=== PATIENT | male | born 1965 | race Caucasian/White ===

== ENCOUNTER 2019-09-26 11:27 | Inpatient (IN) ==
[2019-09-26] MEDS ORDERED: SODIUM CHLORIDE 0.9% 500 ML IV STA (11:46)
[2019-09-26] MEDS ORDERED: MoRPHine SULFATE 10 MG/ML CARP/VIAL IV PRN (11:46)
[2019-09-26] MEDS ORDERED: KETOROLAC TROMETHAMINE 15 MG/ML VIAL IV STA (11:46)
[2019-09-26] MEDS ORDERED: ONDANSETRON INJ 2 MG/ML 2 ML VIAL IV STA ×2 (11:46→16:49)
[2019-09-26] MEDS ORDERED: ONDANSETRON INJ 2 MG/ML 2 ML VIAL ONE (11:49)
[2019-09-26] MEDS ORDERED: MoRPHine SULFATE 4 MG/ML 1 ML CARP\\VIAL ONE (11:50)
[2019-09-26] MEDS ORDERED: KETOROLAC TROMETHAMINE 15 MG/ML VIAL ONE (11:50)
[2019-09-26] MEDS: MoRPHine SULFATE 2 MG/ML CARP ONE (11:53)
[2019-09-26 12:00] LABS: POC Urine Bilirubin Negative (Negative); POC Urine Blood 50 (Negative); POC Urine Glucose Normal (Normal); POC Urine Ketones Negative (Negative); POC Urine Leukocytes Negative (Negative); POC Urine Nitrite Negative (Negative); POC Urine Protein Negative (Negative); POC Urine Urobilinogen Normal (Normal); POC Urine pH 7 (4.5-7.5)
[2019-09-26 12:02] LABS: Hematocrit (blood only) 47.7 % (42-52); Hemoglobin 16.9 g/dL (14.0-18.0); Mean Corpuscular Hemoglobin 32.3 pg (25-34); Mean Corpuscular Hgb Conc 35.4 g/dL (32-36); Mean Platelet Volume 10.7 fL (7.4-10.4); Platelet Count 199 K/uL (130-400); RDW Coefficient of Variation 12.4 % (11.5-14.5); RDW Standard Deviation 41.5 fL (36.4-46.3); Red Blood Count 5.24 M/uL (4.7-6.1); White Blood Count 7.64 K/uL (4.8-10.8)
[2019-09-26 12:07] LABS: Appearance Urine Clear (Clear); Bacteria Urine Automated Negative (Negative); Bilirubin Urine Negative (Negative); Blood Urine 1+ (Negative); Color Urine Dark Yellow; Epithelial Cell Urine Auto 0-5 /lpf (0-5); Glucose Urine UA Negative (Negative); Ketones Urine Negative (Negative); Leukocyte Esterase Urine Negative (Negative); Nitrite Urine Negative (Negative); Protein Urine Trace (Negative); RBC Urine Automated 0-4 /hpf (0-4); Specific Gravity Urine 1.026 (1.000-1.030); Urobilinogen Urine Negative (Negative)
[2019-09-26 12:12] LABS: Calcium 9.2 mg/dl (8.5-10.1); Potassium 3.7 mmol/L (3.5-5.1)
[2019-09-26 12:14] LABS: BUN Creatinine Ratio 16.4 (10-20); Creatinine Clr Calc Pharmacy 76.9 ml/min; Est GFR (African American) 70.7
[2019-09-26 12:21] LABS: Albumin Level 4.1 gm/dl (3.4-5.0); Bilirubin Direct 0.2 mg/dl (0-0.2); Bilirubin,Total 0.8 mg/dl (0.2-1); Total Protein 7.8 gm/dl (6.4-8.2)
[2019-09-26] MEDS ORDERED: MoRPHine SULFATE 10 MG/ML CARP/VIAL IV STA (12:45)
--- NOTE | 2019-09-26 12:49 | CT Scan Report ---
CT SCAN OF THE ABDOMEN AND PELVIS WITHOUT IV CONTRAST CLINICAL HISTORY: Left flank pain. Hematuria. COMPARISON STUDY: No priors. TECHNIQUE: CT scan of the abdomen and pelvis is performed from the lung bases to the proximal femora. Images are reviewed in the axial, sagittal, and coronal planes. IV contrast was not administered for this examination as per the referring clinician. A dose lowering technique was utilized adhering to the principles of ALARA. CT DOSE: 987.11 mGy.cm FINDINGS: Lung bases: The heart is normal in size and without pericardial effusion. There are coronary artery c alcifications. Emphysematous change is suspected. No airspace consolidation or pleural effusion is id entified. There is a small hiatal hernia. Liver: The unenhanced liver is normal in size, contour, and attenuation. There is no intrahepatic caitlyn iary ductal dilatation. Gallbladder: Unremarkable. Spleen: Normal in size and attenuation. Pancreas: Unremarkable. Adrenal glands: Unremarkable. Kidneys: The unenhanced kidneys are normal in size. There is a 4 mm obstructing calculus at the left vesicoureteral junction seen on image #397. This causes mild to moderate left hydroureteronephrosis. No additional calculi are identified in the left kidney. No right renal calculi are seen and there is no right-sided hydronephrosis. There is no evidence of contour deforming renal mass lesion. Abdominal vasculature: The abdominal aorta is normal in course and caliber noting mild atheroscleroti c calcification. Bowel: There is mild colonic diverticulosis without CT evidence of acute diverticulitis. No bowel obs truction is seen. The appendix is not identified and reported surgically absent. Peritoneum: There is no intraperitoneal free air or abdominal ascites. Lymphadenopathy: None. Pelvic viscera: The bladder is decompressed and not well evaluated. The prostate gland is mildly enla rged and heterogeneous. The seminal vesicles are normal as imaged. Skeletal structures: There is mild lumbosacral spondylosis. Postoperative change is noted at L5-S1. A bone graft donor site is seen in the medial left ilium. No lytic or blastic lesions are seen. IMPRESSION: 1. There is a 4 mm obstructing calculus at the left vesicoureteral junction. This causes mild to mode rate left hydroureteronephrosis. 2. No additional calculi are identified in either kidney. 3. Mild colonic diverticulosis without CT evidence of acute diverticulitis. 4. Additional findings as above. Electronically signed by: Raman Baxter M.D. 09/26/2019 12:48 PM
[2019-09-26] MEDS ORDERED: ONDANSETRON 4 MG OD TAB PO STA (13:58)
[2019-09-26] MEDS ORDERED: SODIUM CHLORIDE 0.9% 1000ML 1,000 ML IV ONE (16:49)
--- NOTE | 2019-09-26 17:10 | Emergency Department Note ---
Entered by Humaira Willams acting as a scribe for Terrence Agustin DO History of Present Illness General Chief complaint: Kidney Stone Stated complaint: KIDNEY STONE Source: patient History of Present Illness Onset (ago): hour(s) 3 Location: left (flank) Radiation: abdomen Severity: severe and similar to prior episodes Pain Consistency: + other (Sudden) Maximum Pain Intensity: 9 Quality: + other (flank pain) Associated symptoms: no chest pain and no other (dysuria) Treatments prior to arrival: none The patient is a 53 year old male presenting to the Emergency Department complaining of sudden flank pain stating 3 hours ago. The patient reports that he has severe left sided flank pain. He states that this pain radiates to his abdomen and bladder. He notes that he experienced these symptoms year ago when he had a kidney stone. He adds that he took no medications [employer] for his symptoms. The patient denies chest pain and dysuria. No other exacerbating or remitting factors. Home Medications Home Medications Medication Instructions Recorded Confirmed Type atorvastatin 10 mg PO DAILY 09/26/19 09/26/19 History tramadol 50 mg PO TID PRN #14 tab 09/26/19 Rx Allergies Allergy/AdvReac Type Severity Reaction Status Date / Time oxycodone [From OxyContin] Allergy Anaphylaxis Unverified 09/26/19 12:38 Past Med/Surg History Medical History History of kidney stones Surgical History History of appendectomy History of hernia repair Social History Preferred Language: Greenlandic Feels Safe at Home: Yes Smoking Status: Never smoker Review of Systems See HPI for pertinent positives & negatives. and A total of 10 systems reviewed and were otherwise negative Physical Exam Vital Signs Vital Signs - 24 hr 09/26/19 11:31 09/26/19 14:06 09/26/19 17:00 Temperature 36.4 C L Temperature Source Oral Sepsis Recent Fever Within 48 Hours No Sepsis New/Unexplained Change in Mental Status No Sepsis Action Taken by Nursing No Action Required Pulse Rate 77 77 Pulse Rate [Right Finger] 83 Pulse Rhythm [Right Finger] Regular Respiratory Rate 24 18 18 Respiratory Effort / Characteristics Non-Labored Non-Labored Spontaneous Respiratory Depth Normal Normal Blood Pressure 143/96 H 143/96 H Blood Pressure [Right Arm] 138/87 Blood Pressure Mean 111 Blood Pressure Mean [Right Arm] 104 Blood Pressure Position Sitting Blood Pressure Position [Right Arm] Lying Pulse Oximetry 99 99 97 Oxygen Delivery Method Room Air Room Air Room Air GENERAL: Patient is walking around room, holding left flank. Moderate distress EYE EXAM: normal conjunctiva. OROPHARYNX: no exudate, no erythema, lips, buccal mucosa, and tongue normal and mucous membranes are moist NECK: supple, no nuchal rigidity, no adenopathy, non-tender LUNGS: Clear to auscultation. Normal chest wall mechanics HEART: no murmurs, S1 normal and S2 normal ABDOMEN: abdomen soft, non-tender, normo-active bowel sounds, no masses, no rebound or guarding. BACK: Back is symmetrical on inspection and there is no deformity, no midline tenderness, no CVA tenderness. SKIN: no rashes and no bruising UPPER EXTREMITIES: upper extremities are grossly normal. LOWER EXTREMITIES: No pitting edema. NEURO EXAM: Normal sensorium, cranial nerves II-XII grossly intact, normal speech, no gross weakness of arms, no gross weakness of legs. Course ED COURSE: Vital signs were reviewed and showed hypertension. The patients medical record was reviewed The above diagnostic studies were performed and reviewed. ED treatments and interventions as stated above. 1150: The patient was evaluated in room B2. A complete history and physical ex amination was performed. 1247: I reevaluated the patient at this time reports that he is in pain. I will order more pain medication. 1303: I updated the patient at this time. 1308: I spoke to the patient at this time who reports that he can take Tramadol. 1815: The patient's nurse reports that the patient vomited in the waiting room at this time. 1624: I reevaluated the patient at this time who continues to vomit. I will call the hospitalist service. 1702: I discussed the patient's case with Dr. Ismael Batista hospitalist. He will evaluate the patient for further management. 1710: Upon reevaluation, I discussed my findings with the patient and he understands and agrees with the treatment plan. Based on the patients age, coexisting illnesses, exam and lab findings the decision to treat as an intpatient was made. The patient remained stable while under my care. The patient will be evaluated for further management. Administered Medications Sodium Chloride (Nss 1000ml) 1,000 mls @ 999 mls/hr IV .Q1H1M ONE Stop: 09/26/19 17:49 Last Admin: 09/26/19 17:05 Dose: 999 mls/hr Documented by: [id number] Morphine Sulfate (Morphine Sulfate) 6 mg IV Q10M PRN PRN Reason: Pain Last Admin: 09/26/19 12:46 Dose: 6 mg Documented by: [id number] Discontinued Medications Sodium Chloride (Nss) 500 mls @ 999 mls/hr IV .Q31M STA Stop: 09/26/19 12:16 Last Infusion: 09/26/19 12:52 Dose: 0 mls/hr Documented by: [id number] Admin: 09/26/19 11:55 Dose: 999 mls/hr Documented by: [id number] Ketorolac Tromethamine (Toradol) 15 mg IV ONE STA Stop: 09/26/19 11:47 Last Admin: 09/26/19 11:55 Dose: Not Given Documented by: [id number] Ketorolac Tromethamine (Toradol) Confirm Administered Dose 15 mg .ROUTE .STK-MED ONE Stop: 09/26/19 11:51 Last Admin: 09/26/19 11:54 Dose: 15 mg Documented by: [id number] Morphine Sulfate (Morphine Sulfate) Confirm Administered Dose 2 mg .ROUTE .STK- MED ONE Stop: 09/26/19 11:50 Last Admin: 09/26/19 11:53 Dose: 2 mg Documented by: [id number] Admin: 09/26/19 11:53 Dose: 2 mg Documented by: [id number] Morphine Sulfate (Morphine Sulfate) Confirm Administered Dose 4 mg .ROUTE .STK- MED ONE Stop: 09/26/19 11:51 Last Admin: 09/26/19 11:53 Dose: 4 mg Documented by: [id number] Morphine Sulfate (Morphine Sulfate) 6 mg IV NOW STA Stop: 09/26/19 12:46 Last Admin: 09/26/19 12:54 Dose: Not Given Documented by: [id number] Ondansetron HCl (Zofran) 4 mg IV NOW STA Stop: 09/26/19 11:47 Last Admin: 09/26/19 11:55 Dose: Not Given Documented by: [id number] Ondansetron HCl (Zofran) Confirm Administered Dose 4 mg .ROUTE .STK-MED ONE Stop: 09/26/19 11:50 Last Admin: 09/26/19 11:54 Dose: 4 mg Documented by: [id number] Ondansetron HCl (Zofran Odt) 8 mg PO NOW STA Stop: 09/26/19 13:59 Last Admin: 09/26/19 14:03 Dose: 8 mg Documented by: [id number] Medical Decision Making Differential Diagnosis Differential diagnoses includes but is not limited to gastritis, peptic ulcer disease, GERD, gallbladder disease, pancreatitis, small bowel obstruction, acute coronary syndrome, pericarditis, ischemic bowel, irritable bowel disease, irritable bowel syndrome, appendicitis, diverticulitis, malignancy, hernia, urinary tract infection, torsion, perforation, trauma, infectious. Medical Records Attestation: I reviewed the patient's medical records. Home Medications Current Medication List: was personally reviewed by me Laboratory Data Attestation: I reviewed the patient's lab results. Result diagrams: 09/26/19 11:45 09/26/19 11:45 Lab Results 09/26/19 09/26/19 09/26/19 Range/Units 11:45 11:45 11:45 WBC 7.64 (4.8-10.8) K/uL RBC 5.24 (4.7-6.1) M/uL Hgb 16.9 (14.0-18.0) g/dL Hct 47.7 (42-52) % MCV 91.0 (80-100) fL MCH 32.3 (25-34) pg MCHC 35.4 (32-36) g/dL RDW Std Deviation 41.5 (36.4-46.3) fL RDW Coeff of Dina 12.4 (11.5-14.5) % Plt Count 199 (130-400) K/uL MPV 10.7 H (7.4-10.4) fL Sodium 140 (136-145) mmol/L Potassium 3.7 (3.5-5.1) mmol/L Chloride 105 (98-107) mmol/L Carbon Dioxide 27 (21-32) mmol/L Anion Gap 8.0 (3-11) BUN 22 H (7-18) mg/dl Creatinine 1.33 (0.6-1.4) mg/dl Est Cr Clr Drug Dosing 76.9 ml/min Est GFR ( Amer) 70.7 Est GFR (Non-Af Amer) 61.0 BUN/Creatinine Ratio 16.4 (10-20) Glucose 117 H (70-99) mg/dl Calcium 9.2 (8.5-10.1) mg/dl Total Bilirubin 0.8 (0.2-1) mg/dl Direct Bilirubin 0.2 (0-0.2) mg/dl AST 39 H (15-37) U/L ALT 99 H (12-78) U/L Alkaline Phosphatase 108 (45-117) U/L Total Protein 7.8 (6.4-8.2) gm/dl Albumin 4.1 (3.4-5.0) gm/dl Urine Color Urine Appearance (Clear) Urine pH (4.5-7.5) POC Urine pH 7 (4.5-7.5) Ur Specific Disputanta (1.000-1.030) Urine Protein (Negative) POC Urine Protein Negative (Negative) Urine Glucose (UA) (Negative) POC Ur Glucose (UA) Normal (Normal) Urine Ketones (Negative) POC Urine Ketones Negative (Negative) Urine Blood (Negative) POC Urine Blood 50 H (Negative) Urine Nitrite (Negative) POC Urine Nitrite Negative (Negative) Urine Bilirubin (Negative) POC Urine Bilirubin Negative (Negative) Urine Urobilinogen (Negative) POC Urine Urobilinogen Normal (Normal) Ur Leukocyte Esterase (Negative) POC U Leukocyte Esteras Negative (Negative) Urine WBC (Auto) (0-5) /hpf Urine RBC (Auto) (0-4) /hpf U Hyaline Cast (Auto) (0-5) /lpf U Epithel Cells (Auto) (0-5) /lpf Urine Bacteria (Auto) (Negative) 09/26/19 Range/Units 11:45 WBC (4.8-10.8) K/uL RBC (4.7-6.1) M/uL Hgb (14.0-18.0) g/dL Hct (42-52) % MCV (80-100) fL MCH (25-34) pg MCHC (32-36) g/dL RDW Std Deviation (36.4-46.3) fL RDW Coeff of Dina (11.5-14.5) % Plt Count (130-400) K/uL MPV (7.4-10.4) fL Sodium (136-145) mmol/L Potassium (3.5-5.1) mmol/L Chloride (98-107) mmol/L Carbon Dioxide (21-32) mmol/L Anion Gap (3-11) BUN (7-18) mg/dl Creatinine (0.6-1.4) mg/dl Est Cr Clr Drug Dosing ml/min Est GFR ( Amer) Est GFR (Non-Af Amer) BUN/Creatinine Ratio (10-20) Glucose (70-99) mg/dl Calcium (8.5-10.1) mg/dl Total Bilirubin (0.2-1) mg/dl Direct Bilirubin (0-0.2) mg/dl AST (15-37) U/L ALT (12-78) U/L Alkaline Phosphatase (45-117) U/L Total Protein (6.4-8.2) gm/dl Albumin (3.4-5.0) gm/dl Urine Color Dark Yellow Urine Appearance Clear (Clear) Urine pH 5.0 (4.5-7.5) POC Urine pH (4.5-7.5) Ur Specific Disputanta 1.026 (1.000-1.030) Urine Protein Trace H (Negative) POC Urine Protein (Negative) Urine Glucose (UA) Negative (Negative) POC Ur Glucose (UA) (Normal) Urine Ketones Negative (Negative) POC Urine Ketones (Negative) Urine Blood 1+ H (Negative) POC Urine Blood (Negative) Urine Nitrite Negative (Negative) POC Urine Nitrite (Negative) Urine Bilirubin Negative (Negative) POC Urine Bilirubin (Negative) Urine Urobilinogen Negative (Negative) POC Urine Urobilinogen (Normal) Ur Leukocyte Esterase Negative (Negative) POC U Leukocyte Esteras (Negative) Urine WBC (Auto) 1-5 (0-5) /hpf Urine RBC (Auto) 0-4 (0-4) /hpf U Hyaline Cast (Auto) 1-5 (0-5) /lpf U Epithel Cells (Auto) 0-5 (0-5) /lpf Urine Bacteria (Auto) Negative (Negative) Imaging Data Radiologist's Impression: Radiology results as stated below per my review and the radiologist's interpretation: CT SCAN OF THE ABDOMEN AND PELVIS WITHOUT IV CONTRAST CLINICAL HISTORY: Left flank pain. Hematuria. COMPARISON STUDY: No priors. TECHNIQUE: CT scan of the abdomen and pelvis is performed from the lung bases to the proximal femora. Images are reviewed in the axial, sagittal, and coronal planes. IV contrast was not administered for this examination as per the referring clinician. A dose lowering technique was utilized adhering to the principles of ALARA. CT DOSE: 987.11 mGy.cm FINDINGS: Lung bases: The heart is normal in size and without pericardial effusion. There are coronary artery calcifications. Emphysematous change is suspected. No airspace consolidation or pleural effusion is identified. There is a small hiatal hernia. Liver: The unenhanced liver is normal in size, contour, and attenuation. There is no intrahepatic biliary ductal dilatation. Gallbladder: Unremarkable. Spleen: Normal in size and attenuation. Pancreas: Unremarkable. Adrenal glands: Unremarkable. Kidneys: The unenhanced kidneys are normal in size. There is a 4 mm obstructing calculus at the left vesicoureteral junction seen on image #397. This causes mild to moderate left hydroureteronephrosis. No additional calculi are identified in the left kidney. No right renal calculi are seen and there is no right-sided hydronephrosis. There is no evidence of contour deforming renal mass lesion. Abdominal vasculature: The abdominal aorta is normal in course and caliber noting mild atherosclerotic calcification. Bowel: There is mild colonic diverticulosis without CT evidence of acute diverticulitis. No bowel obstruction is seen. The appendix is not identified and reported surgically absent. Peritoneum: There is no intraperitoneal free air or abdominal ascites. Lymphadenopathy: None. Pelvic viscera: The bladder is decompressed and not well evaluated. The prostate gland is mildly enlarged and heterogeneous. The seminal vesicles are normal as imaged. Skeletal structures: There is mild lumbosacral spondylosis. Postoperative change is noted at L5-S1. A bone graft donor site is seen in the medial left ilium. No lytic or blastic lesions are seen. IMPRESSION: 1. There is a 4 mm obstructing calculus at the left vesicoureteral junction. This causes mild to moderate left hydroureteronephrosis. 2. No additional calculi are identified in either kidney. 3. Mild colonic diverticulosis without CT evidence of acute diverticulitis. 4. Additional findings as above. Electronically signed by: Raman Baxter M.D. 09/26/2019 12:48 PM Blood Pressure Blood Pressure Findings: Elevated blood pressure Blood Pressure Disposition: further management by hospitalist MARY Narrative Patient is a 53-year-old male who presents the ER for left-sided flank pain that started this morning. Patient describes it is severe and sharp stabbing in jun ure. He was in moderate distress on exam. IV was established blood work was obtained and showed no significant leukocytosis or anemia. BMP along with LFTs shows a mild transaminitis. UA without signs of infection but did have hematuria likely secondary to stone. CT abdomen pelvis shows a 4 mm distal left ureteral stone. Patient was given multiple dose of IV narcotics and IV Zofran. He was given IV fluids. He was initially discharged. He continued to get intermittently sick and consequently I recommend that he stay. IV was replaced he was given IV fluids Zofran and more pain medications. He was discussed with the hospitalist and will be observed overnight. Impression & Plan Renal colic, Hydronephrosis, Vomiting Discharge Plan Visit Data Chief Complaint: Kidney Stone Stated Complaint: KIDNEY STONE ED Provider: Terrence Agustin Discharge Problem: Renal colic, Hydronephrosis, Vomiting Patient Disposition: Being Evaluated by Hospitalist Discharge Instructions Krames/Other Patient Handouts: ED Stone Renal W Colic Activity Restrictions/Additional Instructions: Please follow up with your primary care doctor with in the next 24 hours. Any worsening of your symptoms, please return to the ED immediately. This includes any fevers greater than 100.4, worsening pain, chest pain, shortness breath, p ersistent nausea, vomiting, unable to eat or drink, or any other concerning signs or symptoms from your standpoint. Please follow-up with your urologist. Again any fevers above 100.4 you need to be in the closest ER. You were given medications during this visit that will inhibit your ability to d rive, operate machinery and work. Please do NOT drive, operate machinery or work for the next 12hrs. You were also given a prescription for a narcotic. While taking this medication you should also not drive, operate machinery and or work. You were found to have a blood pressure greater than 120 systolic over 90 diastolic. Due to the new Medicare guidelines, we are now recommending that you follow up with your primary care doctor in regards to this elevated blood pressure. Interventions: ED Discharge Assessment Last Done: 09/26/19 14:06 Forms Stand Alone Forms: My [facility], Important Visit Information Prescriptions Prescriptions: New tramadol 50 mg tablet 50 mg PO TID PRN (Reason: pain) Qty: 14 RF: 0 No Action atorvastatin 10 mg Tablet 10 mg PO DAILY RF: 0 Referrals Referrals: Gian Ellis MD [Physician] - PCP,NO [Primary Care Provider] - Discharge Problem: Hydronephrosis Qualifiers: Hydronephrosis type: unspecified Qualified Code(s): N13.30 - Unspecified hydronephrosis Vomiting Qualifiers: Vomiting type: unspecified Vomiting Intractability: intractable Nausea presence: with nausea Qualified Code(s): R11.2 - Nausea with vomiting, unspecified The scribe's documentation has been prepared under my direction and personally reviewed by me in its entirety. I confirm that the note above accurately ref lects all work, treatment, procedures, and medical decision making performed by me.
--- NOTE | 2019-09-26 17:29 | History & Physical Report ---
Date of Service September 26, 2019 Assessment & Plan (1) Left renal stone: Left Hydronephrosis Nausea and Vomiting -This is a 53 year old Male who had symptoms of nausea and vomiting starting around 8 Am this morning and on CT scan in the ED, patient is found to have 4 mm obstructing calculus at the left vesicoureteral junction that causes mild to moderate left hydroureteronephrosis. Patient has been on given IV antiemetics and pain medications in the ED but continues to have vomiting. There is a bucket of vomit at his bedside in the ED. Patient denies acute pain. -will continue IV fluids as 100cc/hr and give prn IV antimetics and prn pain medications (Allergies: patient reports oxycodone leads to anaphylaxis but patient received morphine in the ED with anaphylactic reactions) -start tamuslosin -consult urology -clear liquid diet for now -will keep patient NPO after midnight in case of any urology interventions -KUB to follow renal stone on 10/07/19 DVT ppx: SCDs My colleague Dr. Hahn will be taking over the care of the patient as hospitalist starting on 09/27/19 History of Present Illness This is a 53 year old Male who had symptoms of nausea and vomiting starting around 8 Am this morning and on CT scan in the ED, patient is found to have 4 mm obstructing calculus at the left vesicoureteral junction that causes mild to moderate left hydroureteronephrosis. Patient has been on given IV antiemetics and pain medications in the ED but continues to have vomiting. There is a bucket of vomit at his bedside in the ED. Patient denies acute pain. Denies fevers at home. no abdominal pain. no acute back pain. no shortness of breath. he is breathing comfortably on room air. no headache. no dizziness. Of note, patient is a reside outside of [place] and was here in town to visit when these symptoms occur. Patient denies being on any other medications besides atorvastatin Family History: mother with history of aneurysm Allergies: patient reports oxycodone leads to anaphylaxis but patient received morphine in the ED with anaphylactic reactions Primary Care Provider: NO PCP Allergies Allergy/AdvReac Type Severity Reaction Status Date / Time oxycodone [From OxyContin] Allergy Anaphylaxis Unverified 09/26/19 12:38 Home Medications Home Medications Medication Instructions Recorded Confirmed Type atorvastatin 10 mg PO DAILY 09/26/19 09/26/19 History Past Med/Surg History Medical History History of kidney stones Surgical History History of appendectomy History of hernia repair Social History Preferred Language: American Communication Ability: Effective Employment Manager Required: No Beliefs That Will Affect Care: None Current Living Situation: Spouse Other Information That Helps Us Care for You: No Feels Safe at Home: Yes Safety Concerns: Feels Safe At This Time Smoking Status: Never smoker Hx Alcohol Use: No Hx Substance Use: No Review of Systems Review of Systems: All systems reviewed & are unremarkable except as noted in HPI & below Physical Exam Constitutional: cooperative Eyes: PERRL, conjunctivae normal, anicteric sclerae EOM intact bilaterally ENMT: external ear and nose normal, oropharynx normal Neck: normal visual inspection Respiratory: normal respiratory effort, lungs clear to auscultation Cardiovascular: Rate/Rhythm: regular rate and regular rhythm Gastrointestinal (Abdomen): normal bowel sounds, soft, nontender, no hepatosplenomegaly Musculoskeletal: no cyanosis or clubbing, extremities motor strength 5/5 Neurologic: PERRL, EOMI, accommodation nl, no face palsy, no dysarthria CN's II-XI intact bilaterally Psychiatric: A+Ox3, euthymic affect Results & Data Vital Signs (Past 12 Hours) Vital Signs Temp Pulse Pulse Resp BP BP Pulse Ox 09/26/19 17:00 83 18 138/87 97 09/26/19 14:06 77 18 143/96 H 99 09/26/19 11:31 36.4 C L 77 24 143/96 H 99 Code Status & VTE Plan VTE Prophylaxis Plan VTE Prophylaxis will be ordered: Yes
[2019-09-26] MEDS ORDERED: KETOROLAC 30 MG/ML VIAL IV PRN (17:53)
[2019-09-26] MEDS ORDERED: MAGNESIUM HYDROXIDE SUSP 30 ML UDC PO PRN (17:53)
[2019-09-26] MEDS ORDERED: ALUMINUM/MAGNESIUM SUSP 30 ML UDC PO PRN (17:53)
[2019-09-26] MEDS ORDERED: POLYETHYLENE (MIRALAX) 17 GM PACK PO PRN (17:53)
[2019-09-26] MEDS ORDERED: ONDANSETRON INJ 2 MG/ML 2 ML VIAL IV PRN (17:53)
[2019-09-26] MEDS ORDERED: ACETAMINOPHEN 325 MG TAB PO PRN (17:53)
[2019-09-26] MEDS ORDERED: ACETAMINOPHEN 1,000 MG/100 ML VIAL IV PRN (18:04)
[2019-09-26] MEDS ORDERED: KETOROLAC TROMETHAMINE 15 MG/ML VIAL IV PRN (18:05)
[2019-09-26] MEDS: SODIUM CHLORIDE 0.9% 1000ML 1,000 ML IV SCH (18:09)
--- NOTE | 2019-09-26 19:53 | Urology Consultation ---
Date of Consultation September 26, 2019 Assessment & Plan (1) Left renal stone: Pains been better covered. Is being hydrated. Tolerating diet right now. Does have occasional episodes of nausea. This can be severe at times. Medications have helped with this. Has not seen any blood in urine. Did have a stone approximately 30 years ago and had similar issues but not as severe. Had passed that stone at that time. Discussed options at length. Patient will continue with hydration. We will plan n.p.o. at midnight. With plans to treat in the a.m. or place stent depending on how patient ends up tolerating issues. Due to nausea may need something done.Imaging was all reviewed patient's complicated medical surgical and past history were all reviewed. (2) Hydronephrosis: (3) Renal colic: History of Present Illness Attending Physician: Antolin Guevara MD History of Present Illness Patient presenting with sudden onset of left flank pain in waves going to groin. Patient was found to have a obstructing left ureteral stone at the UVJ. Mild hydro-. Patient had severe nausea with severe pain. Had a history of stones approximately 30 years ago which have passed on its own and had not had as much pain and did not have any nausea associated with it. Patient is currently hydrating has been admitted for pain control Patient is currently resting comfortably. Occasionally having waves of nausea. No other major fevers or chills.No family history of issues. Allergies Allergy/AdvReac Type Severity Reaction Status Date / Time oxycodone [From OxyContin] AdvReac Anaphylaxis Unverified 09/26/19 18:04 Home Medications Home Medications Medication Instructions Recorded Confirmed Type atorvastatin 10 mg PO DAILY 09/26/19 09/26/19 History Patient History Medical History History of kidney stones Surgical History History of appendectomy History of hernia repair Social History Preferred Language: Upper Sorbian Communication Ability: Effective Director Educational Radio Required: No Beliefs That Will Affect Care: None Current Living Situation: Spouse Other Information That Helps Us Care for You: No Feels Safe at Home: Yes Safety Concerns: Feels Safe At This Time Smoking Status: Never smoker Hx Alcohol Use: No Hx Substance Use: No Review of Systems Review of Systems: All systems reviewed & are unremarkable except as noted in HPI & below Physical Exam Physical Exam: General: Alert and oriented x 3 in no acute distress. Patient is well nourished and well kept. HEENT: Normocephalic Atraumatic. Inspection normal. Cranial Nerves 2-12 Grossly intact. Nares are clear. Neck is supple. Normal inspection of face. Normal inspection of neck. Neurologic: No deficits on inspection. Baseline for motor function and sensory. Psychologic: Normal affect. Respiratory: Nonlabored. No use of accessory muscles. No tachypnea or dyspnea. Cardiovascular: No tachycardia Skin: Wilmer and Dry. No rashes or visible lesions. Extremities: Moving without issues. No motor deficits on inspection Lymphatics: No edema Abdomen: Soft Non-distended. No acites. No rebound or guarding.Mild left-sided pain Results & Data Vital Signs (Past 12 Hours) Vital Signs Temp Pulse Pulse Resp BP BP Pulse Ox 09/26/19 18:00 36.5 C 72 16 137/87 98 09/26/19 17:00 83 18 138/87 97 09/26/19 11:31 36.4 C L 77 24 143/96 H 99 PG Care Time/CCT Total # of Minutes Spent Total Time Spent with Patient: Total time spent is greater than 50% in coordination of care (as documented) at patient's floor/unit and/or counseling patient: (1) Hydronephrosis Hydronephrosis type: unspecified Qualified Code(s): N13.30 - Unspecified hydronephrosis
[2019-09-26] MEDS ORDERED: TAMSULOSIN HCL 0.4 MG CAP PO SCH (21:00)
[2019-09-27] MEDS: SODIUM CHLORIDE 0.9% 1000ML 1,000 ML IV SCH ×2 (02:26→12:37)
[2019-09-27 05:18] LABS: Basophils # (auto) 0.02 K/uL (0-0.2); Basophils % (auto) 0.2 %; Eosinophils # (auto) 0.06 K/uL (0-0.5); Eosinophils % (auto) 0.6 %; Hematocrit (blood only) 38.2 % (42-52); Hemoglobin 13.4 g/dL (14.0-18.0); Immature Granulocytes # (auto) 0.02 K/uL (0.00-0.02); Immature Granulocytes % (auto) 0.2 %; Lymphocytes # (auto) 1.46 K/uL (1.2-3.4); Lymphocytes % (auto) 14.3 %; Mean Corpuscular Hemoglobin 31.7 pg (25-34); Mean Corpuscular Hgb Conc 35.1 g/dL (32-36); Mean Corpuscular Volume 90.3 fL (80-100); Mean Platelet Volume 10.6 fL (7.4-10.4); Monocytes # (auto) 1.09 K/uL (0.11-0.59); Monocytes % (auto) 10.7 %; Neutrophils # (auto) 7.53 K/uL (1.4-6.5); Platelet Count 153 K/uL (130-400); RDW Coefficient of Variation 12.7 % (11.5-14.5); RDW Standard Deviation 41.9 fL (36.4-46.3); Red Blood Count 4.23 M/uL (4.7-6.1); White Blood Count 10.18 K/uL (4.8-10.8)
[2019-09-27 05:38] LABS: Albumin Level 3.1 gm/dl (3.4-5.0); BUN Creatinine Ratio 13.6 (10-20); Calcium 7.9 mg/dl (8.5-10.1); Creatinine Clr Calc Pharmacy 64.5 ml/min; Est GFR (African American) 57.4; Est GFR (Non-African American) 49.6; Potassium 4.2 mmol/L (3.5-5.1)
[2019-09-27 05:48] LABS: Albumin Globulin Ratio 1.1 (0.9-2); Bilirubin,Total 0.7 mg/dl (0.2-1); Globulin 2.9 gm/dl (2.5-4.0)
--- NOTE | 2019-09-27 07:16 | XRay Report ---
KUB HISTORY: Follow up study in a patient with distal left ureteral calculus follow kidney stone COMPARISON: CT abdomen and pelvis 09/26/2019 FINDINGS: The bowel gas pattern is non-obstructive. There is no organomegaly. No definite renal or u reteral calculi identified. Multiple pelvic basin calcifications are again noted suggestive of probab le phleboliths. The renal shadows are partially obscured by bowel gas. No pneumoperitoneum or pneumat osis. Postsurgical changes of the lumbar spine. No fracture. IMPRESSION: No definite renal or ureteral calculi identified. The previously described distal left ureteral calcu julio is not definitively seen. Multiple pelvic basin calcifications are redemonstrated. Electronically signed by: Michael Weiner M.D. 09/27/2019 7:15 AM
--- NOTE | 2019-09-27 08:09 | Urology Progress Note ---
Date of Service September 27, 2019 Assessment & Plan (1) Left renal stone: 53yo M with 4mm left UVJ stone. Doing well, pain controlled. KUB today- no stone visibility. Okay for diet from perspective, order placed. 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 Hopeful for discharge prior to 2pm to drive back to [place]. About [address] Pt understands we cannot guarantee stone passage off of KUB, he accepts. Discussed ER criteria upon discharge. Wishes to discharge home with Rx flomax. General stone prevention discussed. Understands to f/u with PCP in 1-2 weeks[address] pt CT and KUB images on disc for discharge - communication order written. Thank you for allowing us to participate in the acute care of Mr. Xavier. Please reconsult us with additional questions, concerns or changes in patient status. Subjective 53yo M admitted with 4mm left UVJ stone. Doing well, pain controlled without medication overnight. Denies n/v/f/c. States he feels "pretty normal" Straining all urine, stone not collected however also not visible on KUB on this AM. Denies any new issues or complaints today. Pt lives in [facility], traveling here to drive [employer] to a . States he needs to leave by 2pm to drive them home. Pt denies any narcotic pain control >8 hours at this point. Review of Systems Review of Systems: All systems reviewed & are unremarkable except as noted in HPI & below Physical Exam Constitutional: no acute distress and not ill appearing Eyes: no nystagmus ENMT: Ears: no hearing impairment Neck: trachea midline Respiratory: no respiratory distress and no cough Cardiovascular: Vessels: no JVD Chest (Breasts): Chest: normal inspection of chest Gastrointestinal (Abdomen): Inspection/Auscultation: abdomen not distended and no abdominal edema Percussion/Palpation: abdomen soft; abdomen nontender Musculoskeletal: Head/Neck/Chest: normocephalic and head atraumatic Skin: no rashes, warm and dry Neurologic: awake; not confused and not obtunded Psychiatric: Orientation: alert and oriented x 3 Eye Contact: good eye contact Affect: no depressed affect Genitourinary: bladder normal to inspection; no CVA tenderness Lymphatic: no lymphadenopathy and no lymphedema Results & Data Vital Signs (Past 12 Hours) Vital Signs Temp Pulse Resp BP Pulse Ox 09/27/19 07:15 36.7 C 67 122/74 98 09/26/19 23:05 37 C 67 18 97/61 L 96 PG Care Time/CCT Total # of Minutes Spent Total Time Spent with Patient: Total time spent is greater than 50% in coordination of care (as documented) at patient's floor/unit and/or counseling patient:
--- NOTE | 2019-09-27 14:04 | Hospitalist Progress Note ---
Date of Service September 27, 2019 Assessment & Plan (1) Ureteral stone: Presented to ED with severe nausea and vomiting. CT demonstrated left ureteral calculus with hydronephrosis. No fever, dysuria, or other evidence of infection. Received IV fluids, analgesics, antiemetics, tamsulosin. Seen in consultation by Urology. Symptoms resolved. Follow-up KUB did not show any apparent calculi. Discharged to home on tamsulosin. (2) Discharge planning issues: Follow-up with his PCP in [facility]. Follow-up with Urology as needed. Subjective Doing well. No fever. No further flank pain, nausea, vomiting. No dysuria or hematuria. Physical Exam Constitutional: no acute distress Respiratory: no respiratory distress Auscultation: lungs clear to auscul tation bilaterally Cardiovascular: Rate/Rhythm: regular rate and regular rhythm Heart Sounds: no gallop, no murmur and no cardiac rub Vessels: no JVD Extremities: no calf tenderness and no edema Gastrointestinal (Abdomen): normal bowel sounds, soft, nontender, no hepatosplenomegaly no CVA tenderness Skin: no rashes, warm and dry Psychiatric: Orientation: alert and oriented x 3 Results & Data Vital Signs (Past 12 Hours) Vital Signs Temp Pulse BP Pulse Ox 09/27/19 07:15 36.7 C 67 122/74 98 Laboratory Results 09/27/19 04:38 09/27/19 04:38 Diagnostic Findings KUB IMPRESSION: No definite renal or ureteral calculi identified. The previously described distal left ureteral calculus is not definitively seen. Multiple pelvic basin calcifications are redemonstrated. Electronically signed by: Michael Weiner M.D. 09/27/2019 7:15 AM
--- NOTE | 2019-09-27 20:30 | Discharge Summary ---
Date of Service Date of Admission: 09/26/19 Date of Discharge: 09/27/19 Admission HPI Per Admitting Provider This is a 53 year old Male who had symptoms of nausea and vomiting starting around 8 Am this morning and on CT scan in the ED, patient is found to have 4 mm obstructing calculus at the left vesicoureteral junction that causes mild to moderate left hydroureteronephrosis. Patient has been on given IV antiemetics and pain medications in the ED but continues to have vomiting. There is a bucket of vomit at his bedside in the ED. Patient denies acute pain. Denies fevers at home. no abdominal pain. no acute back pain. no shortness of breath. he is breathing comfortably on room air. no headache. no dizziness. Of note, patient is a reside outside of [place] and was here in town to visit when these symptoms occur. Patient denies being on any other medications besides atorvastatin Principal Diagnosis left ureteral calculus with hydronephrosis Discharge Data Allergies Allergy/AdvReac Type Severity Reaction Status Date / Time oxycodone [From OxyContin] AdvReac Anaphylaxis Unverified 09/26/19 18:04 Consultations 09/26/19 16:49 ED Decision to Admit Stat 09/26/19 17:28 Consult Urology Routine 09/27/19 13:58 Burn CD for patient Stat Ordered Studies 09/26/19 11:52 CT abd pelvis wo con Stat Hospital Course (1) Ureteral stone: Presented to ED with severe nausea and vomiting. CT demonstrated left ureteral calculus with hydronephrosis. No fever, dysuria, or other evidence of infection. Received IV fluids, analgesics, antiemetics, tamsulosin. Seen in consultation by Urology. Symptoms resolved. Follow-up KUB did not show any apparent calculi. Discharged to home on tamsulosin. (2) Discharge planning issues: Follow-up with his PCP in [facility]. Follow-up with Urology as needed. Total Time Total Time Spent Total Time Spent (In Minutes): 20 Discharge Plan Discharge Items Patient Disposition: Home - Self-Care Reason For Visit: KIDNEY STONE Discharge Diagnosis: kidney stone left ureter Condition on Discharge: Good Activity: Resume your previous activity Non-emergency contact: Primary Care Provider and Urologist Call non-emergency contact if: you have any medication questions, your pain is not controlled and your temperature is above 101 Follow-up/Referrals: PCP,NO [Primary Care Provider] - Diet: Regular Diet Comment: drink plenty of fluids Addtl Attending Provider Instructions: SUMMARY OF TEST RESULTS: CT scan showed 4 mm kidney stone in left ureter. RECOMMENDATIONS FOR FOLLOW-UP: Please see your family doctor soon for recheck. OTHER INSTRUCTIONS: Seek medical attention if you have: * temperature above 101 * chest pain or trouble breathing * abdominal pain, nausea, vomiting * diarrhea, dark stools or bloody stools * blood in urine, back pain, burning when you urinate * any unanswered questions or concerns Call 911 if symptoms are severe. Please take good care of yourself. Call if you have any questions or problems. You can reach a [facility] hospitalist on duty at [facility] 24 hours a day by calling [phone]. My cell # is [phone]. Pending Studies at Discharge: No Stand-Alone Forms: My [facility], Smoking Cessation Medications and DC Order Prescriptions: New tamsulosin 0.4 mg Capsule 0.4 mg PO HS Qty: 14 RF: 1 Continued atorvastatin 10 mg Tablet 10 mg PO DAILY RF: 0 Discharge Orders: Discharge Order (Routine); Ordered 09/27/19 Ordered By: Marko Hahn Admission Data Admit Date/Time: 09/26/19 17:05 Attending Provider: Marko Hahn Admit Provider: Antolin Guevara Primary Care Provider: PCP,NO Other Providers: Louis Delgado ; Antolin Guevara Other Interventions: Discharge Summary Assessment (RN) Last Done: 09/27/19 11:41 DC Date/Time DO NOT enter until pt leaves facility: 09/27/19 14:25
== END 2019-09-27 14:25 | disposition home or self-care (01) | DRG 694 ==
LOC: ED 11:27 → SUATTDRO 17:05 → 3E 17:05